=== PATIENT | female | born 1970 | race Caucasian/White ===

== ENCOUNTER → 2021-04-03 | Outpatient (CLI) | payer BC ==
[~2021-04-03] MED LIST: AMLODIPINE BES2.5 MG PO; AMLODIPINE BESYL5 MG PO; ARTHRITIS PAIN100 GM TP; DOCUSATE SODIU250 MG PO; FAMOTIDINE20 MG PO; HYDROCODONE-AC1 EACH PO; IBUPROFEN600 MG PO; LINZESS145 MCG PO; VITAMIN B12 GUMMIES PO; VITAMIN D21250 MCG PO; ZEBETA 5 MG TAB5 MG PO
[2021-04-03 11:39] LABS: HEMOGLOBIN 13.3 gm/dl (12.3-15.3); RED BLOOD COUNT 4.58 M/UL (4.00-5.10)
[2021-04-03 12:19] LABS: BUN/CREATININE RATIO 11 (0-10)
== END ==
LOC: OPSV2 09:51
PROVIDERS: Obstetrics & Gynecology
DX: Z01.818 Encounter for other preprocedural examination (principal); N81.9 Female genital prolapse, unspecified; R00.1 Bradycardia, unspecified; I45.10 Unspecified right bundle-branch block
CPT/HCPCS: 36415; 71046; 80053; 81001; 85025; 93005

== ENCOUNTER → 2021-04-05 | Day surgery (SDC) | payer BC | END | disposition home or self-care (01) | LOC: OR 08:22 | DX: D25.1 Intramural leiomyoma of uterus (principal); N72 Inflammatory disease of cervix uteri; N80.0 Endometriosis of uterus; N83.202 Unspecified ovarian cyst, left side; N83.201 Unspecified ovarian cyst, right side; N83.8 Other noninflammatory disorders of ovary, fallopian tube and broad ligament; N93.9 Abnormal uterine and vaginal bleeding, unspecified; Z88.8 Allergy status to other drugs, medicaments and biological substances; I10 Essential (primary) hypertension; Z20.822 Contact with and (suspected) exposure to COVID-19; K59.09 Other constipation; F41.9 Anxiety disorder, unspecified; N39.46 Mixed incontinence | CPT/HCPCS: C1769; J0690; J1100; J1170; J1885; J2001; J2250; J2405; J2704; J2710; J3010; J7050; J7120 ==